=== PATIENT | male | born 1995 | race African-American/Black ===

== ENCOUNTER 2018-10-13 17:00 | Emergency (ER) | payer OTHER ==
[~2018-10-13] VITALS: Ht 182.9 cm; Wt 90.7 kg
[2018-10-13] MEDS ORDERED: VENTOLIN HFA 1818 GM INH ×2 (17:50→21:01)
[2018-10-13] MEDS ORDERED: ADVAIR HFA 230M12 GM INH (21:01)
[2018-10-13] MEDS ORDERED: PREDNISONE 20 M20 MG PO (21:01)
[2018-10-13] MEDS ORDERED: ALBUTEROL2.5 MG/31 INH (21:01)
[2018-10-13 21:43] VITALS: BP 116/68
== END 2018-10-13 21:45 | disposition home or self-care (01) ==
LOC: ER 17:00
DX: J45.901 Unspecified asthma with (acute) exacerbation (principal); J96.00 Acute respiratory failure, unspecified whether with hypoxia or hypercapnia; Z88.2 Allergy status to sulfonamides; Z88.8 Allergy status to other drugs, medicaments and biological substances

== ENCOUNTER 2019-03-03 09:05 | Inpatient (IN) | payer OTHER ==
[~2019-03-03] VITALS: Ht 185.4 cm; Wt 94.3 kg
[~2019-03-03 09:05] MED LIST: ADVAIR HFA 230M12 GM INH; ALBUTEROL2.5 MG/31 INH; PREDNISONE 20 M20 MG PO; VENTOLIN HFA 1818 GM INH
[2019-03-03 09:54] LABS: BE(vivo) -6.2 mmol/L (-2 to +3); HCO3 21.6 mmol/L (22.0-26.0); PCO2 51.2 mmHg (35.0-45.0); pH 7.243 (7.360-7.450); sO2 99.8 % (92.0-98.0)
[2019-03-03 10:01] LABS: ABSOLUTE NEUTROPHILS 5.2 thou/uL (1.4-8.2); BASOPHILS 0.4 % (0.0-2.0); EOSINOPHILS 2.7 % (0.0-3.0); HEMATOCRIT 49.6 % (42.0-52.0); HEMOGLOBIN 16.3 gm/dL (14.0-18.0); MCH 28.6 pg (26.0-34.0); MCHC 32.8 g/dL (28.0-37.0); MCV 87.3 fL (80.0-100.0); MONOCYTES 7.9 % (1.0-8.0); PLATELET COUNT 227 thou/uL (150-400); RBC 5.68 mil/uL (4.50-6.00); RDW 14.6 % (10.5-14.5); WBC 8.3 thou/uL (4.0-11.0)
[2019-03-03 10:09] LABS: CALCIUM 9.8 mg/dL (8.5-10.1); CREATININE 1.2 mg/dL (0.7-1.3); POTASSIUM 3.9 mmol/L (3.5-5.1)
[2019-03-03 10:15] LABS: ALBUMIN 4.4 g/dL (3.4-5.0); TOTAL BILIRUBIN 0.8 mg/dL (<0.1-1.0); TOTAL PROTEIN 8.7 g/dL (6.4-8.2)
[2019-03-03] MEDS ORDERED: PREDNISONE 20 M20 MG PO (10:47)
[2019-03-03] MEDS ORDERED: PREDNISONE 10 M10 MG PO (10:47)
[2019-03-03] MEDS ORDERED: PROAIR RESPICL90 MCG INH (10:49)
[2019-03-03 11:33] LABS: BE(vivo) -3.7 mmol/L (-2 to +3); HCO3 23.9 mmol/L (22.0-26.0); PCO2 VENOUS 52.9 mmHg (41.0-51.0); PO2 VENOUS 25.5 mmHg (35.0-45.0)
[2019-03-03 12:05] VITALS: BP 125/66
[2019-03-03 12:23] VITALS: BP 114/68
[2019-03-03 12:43] VITALS: BP 121/75
--- NOTE | 2019-03-03 14:11 | NUR ---
ASSUMED CARE AT 1300, SHIFT ASSESSMENT DONE, ADMISISON DONE.
[2019-03-03 16:36] VITALS: BP 113/64
--- NOTE | 2019-03-03 17:19 | NUR ---
ASSUMED CARE AT 1300, SHIFT ASSESSMENT DONE, MEDS GIVEN, VSS. DENIES ANY PAIN, NAUSEA, VOMITING. REMAINS ON 4L NC. NSR ON TELE. WILL CONTINUE TO ASSESS AND ASSIST WITH ADLs NEEDED.
[2019-03-03 19:04] VITALS: BP 129/72
[2019-03-04 03:00] VITALS: BP 123/78
--- NOTE | 2019-03-04 03:36 | NUR ---
PT MAKING PROGRESS TOWARDS GOALS. SPO2 ON 2L PER NC WAS 98%. ON ROOM AIR, 93%. PT CHOSE TO WEAR OXYGEN OVERNIGHT WHEN SLEEPING. NO SOA EVENTS REPORTED BY PT. NOTED FAINT WHEEZING THROUGHOUT LUNG DUFFY.
[2019-03-04 07:13] VITALS: BP 127/75
[2019-03-04] MEDS ORDERED: PROAIR RESPICL90 MCG INH (10:19)
[2019-03-04] MEDS ORDERED: ADVAIR HFA 230M12 GM INH (10:19)
[2019-03-04] MEDS ORDERED: PREDNISONE 20 M20 MG PO (10:20)
[2019-03-04 10:28] VITALS: BP 127/75
--- NOTE | 2019-03-04 10:40 | NUR ---
PT ALERT AND ORIENTED TIEMS FOUR. VSS, 98%RA, SR ON TELE. PT DENEIS PAIN/SOA. PT TOLERATES MEDS AND MEALS. PT UP AB NILO WITH STEADY GAIT. PT IS DISCHARGE FOCUSED. PT PROGRESSING TOWRADS POC GOALS.
--- NOTE | 2019-03-04 15:04 | NUR ---
INITIAL ASSESSMENT/DISCHARGE NOTE: YARED reviewed chart and spoke with nursing and attending physician. Pt was admitted from home due to asthma exacerbation. Pt medically stable for discharge home today. Pt requesting assistance with new prescriptions. Pt's scripts taken to [facility] outpatient pharmacy. YARED spoke with Dee Dee, who states total for meds is $571.02. YARED discussed with Director of Case Mgmt, who approved vouching for pt's new scripts. Pt picked up scripts and has transportation home. Pt provided with Health Resource Guide and prescription discount card. No additional SW needs identified at this time, but is available to assist should needs arise.
== END 2019-03-04 13:48 | disposition home or self-care (01) | DRG 189 ==
LOC: ER 09:05 → EROBS 11:07 → 3W 11:07
PROVIDERS: Emergency Medicine; ADMIT Internal Medicine
DX: J96.01 Acute respiratory failure with hypoxia (principal); J45.901 Unspecified asthma with (acute) exacerbation; F17.210 Nicotine dependence, cigarettes, uncomplicated; J30.2 Other seasonal allergic rhinitis; J96.02 Acute respiratory failure with hypercapnia; Z79.899 Other long term (current) drug therapy; Z88.2 Allergy status to sulfonamides; Z88.8 Allergy status to other drugs, medicaments and biological substances
CPT/HCPCS: 10879

== ENCOUNTER 2020-03-29 08:34 | Inpatient (IN) | payer OTHER ==
[2020-03-29] VITALS (7 sets, daily range): BP systolic 118–169; BP diastolic 74–93
[~2020-03-29] VITALS: Ht 182.9 cm; Wt 98.9 kg
[~2020-03-29 08:34] MED LIST changes: +PREDNISONE 10 M10 MG PO; +PROAIR RESPICL90 MCG INH
[2020-03-29] MEDS ORDERED: SINGULAIR 10 MG10 M1 PO (08:45)
[2020-03-29 08:55] LABS: ABSOLUTE NEUTROPHILS 2.9 thou/uL (1.4-8.2); BASOPHILS 0.8 % (0.0-2.0); HEMATOCRIT 48.6 % (42.0-52.0); HEMOGLOBIN 15.9 gm/dL (14.0-18.0); LYMPHOCYTES 27.7 % (24.0-44.0); MCHC 32.7 g/dL (28.0-37.0); MCV 88.5 fL (80.0-100.0); MONOCYTES 9.1 % (1.0-8.0); PLATELET COUNT 203 thou/uL (150-400); POLYS 57.4 % (36.0-66.0); RBC 5.49 mil/uL (4.50-6.00); RDW 15.1 % (10.5-14.5); WBC 5.1 thou/uL (4.0-11.0)
[2020-03-29 08:58] LABS: CALCIUM 9.5 mg/dL (8.5-10.1); CREATININE 1.2 mg/dL (0.7-1.3); POTASSIUM 3.5 mmol/L (3.5-5.1)
[2020-03-29 09:04] LABS: ALBUMIN 4.9 g/dL (3.4-5.0); TOTAL BILIRUBIN 0.8 mg/dL (0.2-1.0); TOTAL PROTEIN 8.5 g/dL (6.4-8.2)
[2020-03-29 09:22] LABS: BE(vivo) -4.9 mmol/L (-2 to +3); HCO3 21.2 mmol/L (22.0-26.0); PCO2 42.8 mmHg (35.0-45.0); PO2 69.7 mmHg (80.0-100.0); sO2 92.6 % (92.0-98.0)
[2020-03-29 09:23] LABS: pH 7.313 (7.360-7.450)
--- NOTE | 2020-03-29 17:05 | NUR ---
PT ADMITTED FROM ER FOR SOB AT 1200PM, PT IS A&OX3, PT IS ON O2 2L/MIN/NC AND BRETHING TREATMENT, PT'S ANXIETY HAS CONTRILED BY MEDICATION, PT'S VS ARE STABLE. PT'S COVID TEST RESULT IS PENDING.
--- NOTE | 2020-03-29 23:56 | NUR ---
ASSUMED CARE FOR THIS PT AT 1900. UPON INITIAL ASSESSMENT PT'S LUNG SOUNDS WERE WHEEZY THROUGHOUT. EXPLAINED TO THE PT THE ASSESSMENT AND WHAT MEDICATIONS ARE BEING PROVIDED TO ADDRESS THE PRIMARY ISSUES. PT HAS BEEN REQUESTING BREATHING TREATMENT FREQUENTLY, RT PROVIDED BREAHTING TREATMENT. PT'S HEART RATE HAS BEEN RUNNING HIGH; ABOVE 100s. CURRENTLY WORKING WITH PAULETTE DONIS TO ADDRESS THIS ISSUE WELL. REMINDED PT TO CALL FOR ANYTHING THAT IS NEEDED. HEADING INTO THE ROOM NOW TO PROVIDE MIDNIGHT ASSESSMENTS
[2020-03-30] VITALS (7 sets, daily range): BP systolic 121–152; BP diastolic 74–91
--- NOTE | 2020-03-30 11:05 | NUR ---
COVID RESULTS NEGATIVE. DR. MUNIZ NOTIFIED. ORDERS GIVEN FOR TX TO MED/SURG AND TO D/C ENHANCED PRECAUTIONS. OK TO D/C ENHANCED PRECAUTIONS PER NIURKA RODRIGUEZ.
--- NOTE | 2020-03-30 11:08 | NUR ---
ASSUMED CARE APPROX 0700. PT ALERT AND ORIENTED X4. ASSESSMENT CHARTED AND VSS. PT AFEBRILE THIS AM. ON 1LNC W/ NO SIGNS OF RESPIRATORY DISTRESS NOTED. COVID RESULTS NEGATIVE. DR. MUNIZ NOTIFIED. ORDERS GIVEN TO D/C ISOLATION AND TX TO MED/SURG. PT ST ON TELE MONITOR. PT DENIES CHEST PAIN. PT DENIES ACUTE PAIN. WILL CONTINUE TO MONITOR.
--- NOTE | 2020-03-30 16:12 | NUR ---
INITIAL ASSESSMENT: SW reviewed chart and spoke with nursing. Pt was admitted from home due to exacerbation of asthma. Pt placed in Enhanced Isolation to r/o COVID-19. Test results are negative. Pt is currently on IV steroids and has low grade fever. Pt on 2L of O2. SW spoke with pt via phone. Introduced role of SW. Pt is alert/orientated x 4. Pt reports he lives at home. Prior to admission, pt was independent with ADLs. Pt has a nebulizer for breathing treatments. Pt does not have a PCP. Case Mgmt dept has vouched for pt's meds in the past. Pt to be provided with Health Resource Guide and prescription discount card upon discharge. Pt to transfer off of 3W when a bed becomes available. YARED is following to assist as needed with discharge planning.
--- NOTE | 2020-03-31 01:03 | NUR ---
ASSESSED AT START OF SHIFT. PT RESTING IN BED. DENIES, PAIN, N/V. GETS SCHEDULED BREATHING TX. AND ON 1L O2 AT NIGHT. UP AD NILO. CALL LIGHT IN REACH. WILL CONT WITH POC TILL EOS.
[2020-03-31 03:46] VITALS: BP 141/79
[2020-03-31 07:48] VITALS: BP 130/87
[2020-03-31] MEDS ORDERED: PROAIR RESPICL90 MCG INH (11:15)
[2020-03-31] MEDS ORDERED: PREDNISONE 10 M10 MG PO (11:19)
[2020-03-31 11:39] VITALS: BP 130/87
--- NOTE | 2020-03-31 12:52 | NUR ---
PT CARE ASSUMED AT 0700. A&Ox4. PT WAS FOUND TO SMELL VERY STRONGLY OF [place] AND HAD A DOCTOR OF RADIOLOGY LAYING NEXT TO HIM. SECURITY WAS CALLED. ROOM WAS SEARCHED WITH NOTHING FOUND. IV REMOVED. DISCHARGE INFORMATION GIVEN WITH NO FURTHER QUESTIONS ASKED. PT DISCHARGED AT 1254 WITH GIRLFRIEND.
== END 2020-03-31 13:07 | disposition home or self-care (01) | DRG 189 ==
LOC: ER 08:34 → EROBS 11:06 → 3W 11:48 → 4S 03-30 18:36
PROVIDERS: Student in an Organized Health Care Education/Training Program; ADMIT Internal Medicine; ATTEND Internal Medicine
DX: J96.01 Acute respiratory failure with hypoxia (principal); J45.901 Unspecified asthma with (acute) exacerbation; F12.90 Cannabis use, unspecified, uncomplicated; J30.2 Other seasonal allergic rhinitis; D72.1 Eosinophilia; Z20.828 Contact with and (suspected) exposure to other viral communicable diseases; Z88.2 Allergy status to sulfonamides; Z88.8 Allergy status to other drugs, medicaments and biological substances; Z79.899 Other long term (current) drug therapy
CPT/HCPCS: 10100; 10195; 10879

== ENCOUNTER 2021-01-03 01:55 | Emergency (ER) | payer OTHER ==
[~2021-01-03] VITALS: Ht 182.9 cm; Wt 95.3 kg
[~2021-01-03 01:55] MED LIST changes: +SINGULAIR 10 MG10 M1 PO
[2021-01-03] MEDS ORDERED: PREDNISONE 10 M10 MG PO ×2 (03:04→03:28)
[2021-01-03 03:26] VITALS: BP 112/73
[2021-01-03] MEDS ORDERED: PROAIR HFA8.5 GM INH (03:28)
== END 2021-01-03 03:38 | disposition home or self-care (01) ==
LOC: ER 01:55
DX: J45.901 Unspecified asthma with (acute) exacerbation (principal); F17.210 Nicotine dependence, cigarettes, uncomplicated; Z88.6 Allergy status to analgesic agent; Z88.2 Allergy status to sulfonamides; Z88.8 Allergy status to other drugs, medicaments and biological substances; Z79.899 Other long term (current) drug therapy